=== PATIENT | female | born 1955 | race Caucasian/White ===

== ENCOUNTER 2020-12-06 05:20 | Day surgery (SDC) | payer OTHER, SELFPAY ==
[2020-11-22 13:41] VITALS: BMI 31.1
--- NOTE | 2020-11-30 12:22 | EKG12_ITS ---
Test Reason : PREOP Blood Pressure : / mmHG Vent. Rate : 060 BPM Atrial Rate : 060 BPM P-R Int : 144 ms QRS Dur : 086 ms QT Int : 406 ms P-R-T Axes : 011 017 011 degrees QTc Int : 406 ms Normal sinus rhythm Normal ECG Confirmed by ELIZABETH CARRANZA, SUSAN ([id number]), sound editor SERGIO MARION ([id number]) on 12/01/2020 11:23:38 AM Referred By: Lucia Horton Confirmed By:SUSAN JOHNSON MD
[2020-11-30 12:44] LABS: Hematocrit 39.3 % (37-47); Hemoglobin 12.8 g/dL (12.0-15.0); Mean Corp Hgb Conc 32.6 g/dL (32-36); Mean Corpuscular Hgb 29.7 pg (27.0-32.0); Mean Corpuscular Volume 91.2 fL (81-99); Mean Platelet Vol. 10.5 fl (6.2-12.0); Platelet Count 211 K/mm3 (150-450); RBC Distribution Width CV 12.8 % (11.6-14.6); RBC Distribution Width SD 43.2 fl (35.1-43.9); Red Blood Count 4.31 M/mm3 (4.2-5.4)
[2020-11-30 13:13] LABS: Anion Gap 4 (5-15); BUN 14 mg/dL (7-18); BUN/Creat Ratio 14.8 RATIO (10-20); Calcium,Total 8.8 mg/dL (8.5-10.1); Chloride 109 mmol/L (98-107); Creatinine, Serum 0.94 mg/dL (0.55-1.02); EST Glomerular Filtration Rate 63 mL/min (>60); Est Glom Filt Rate - Afr Amer 76 mL/min (>60); Glucose 75 mg/dL (74-106); Potassium 3.7 mmol/L (3.5-5.1); Sodium Level 142 mmol/L (136-145)
[2020-12-06] VITALS (13 sets, daily range): BP systolic 105–146; BP diastolic 66–82; PULSE 52–71; RESP 14–18; TEMP 36.1–36.9; O2SAT 95–100; BMI 31.4
--- NOTE | 2020-12-06 | HYST_PTH ---
PATIENT: JASMIN RAMOS LOC: [facility] [place] U#:[id number] AGE/SX: 65/F ROOM: RE12/06/[address]: Dr. Lucia Horton MD : [id number] BED: DIS: 12/07/2020 SPEC #: [id number] RECD: 12/06/20 12:01 STATUS: SINA GRIGSBY #: [id number] MARY: 12/06/20 00:[address]: Lucia Horton DEPT: SURGICAL PATHOLOGY RECD BY: Augie Gunderson ENTERED: 12/06/20 12:01 SP TYPE: HYSTERECT OTHR DR: DO Dr. Joi Selby MD Tissues: Uterus, NOS Procedures: Surgery Specimen Level V HEADER OPERATION: Vaginal hysterectomy, salpingo-oophorectomy PRE-OP DIAGNOSIS: Uterovaginal prolapse TISSUE SUBMITTED: Uterus, bilateral fallopian tubes and ovaries MICROSCOPIC DIAGNOSIS Uterus, bilateral fallopian tubes and ovaries, vaginal hysterectomy and salpingo-oophorectomy: Cervix - mild chronic cystic cervicitis with tunnel cluster formation. Endometrium - atrophic endometrium. Myometrium - focal adenomyosis. Bilateral fallopian tubes - no pathologic diagnosis. Bilateral ovaries - benign epithelial cysts (0.3 cm in greatest dimension). SJ:everett 12/07/2020 MICROSCOPIC DESCRIPTION Slides are reviewed. GROSS DESCRIPTION Received in fixative is one container labeled with the patient's name and designated uterus, bilateral fallopian tubes and bilateral ovaries. The specimen consists of a hysterectomy specimen consisting of uterus with cervix and detached bilateral fallopian tubes and ovaries. The uterus with cervix weighs 37 gm and measures 6 x 4 x 2.5 cm. The serosal surface is gifford, glistening. The ectocervical mucosa is unremarkable. The external os is oval in contour. The endocervical canal measures 2 cm in length and the endocervical mucosa is gifford, glistening and unremarkable. Sections of the cervix reveal a few cysts filled with mucoid material. The endometrial cavity is very narrow and appears to be partially obliterated and measures 2.5 cm in length and 0.3 cm in diameter. The endometrium is gifford, glistening without any mass lesion and measures <0.1 cm in thickness. Sections of the uterine wall do not reveal any mass lesion and measures up to 1.5 cm in thickness. One of the fallopian tubes measure 3.5 cm in length and 0.5 cm in diameter. The fimbrial end is identified. No tubo-ovarian adhesions are noted. The adjacent ovary measures 2.5 x 1 x 0.5 cm. A paraovarian cyst is noted measuring 0.5 cm in greatest dimension. It is filled with clear fluid. Sections of the ovary reveal unremarkable cut surfaces. The second fallopian tube is similar appearance to first one and measures 3.5 cm in length and 0.5 cm diameter. The adjacent second ovary measures 2.5 x 0.7 x 0.5 cm. Sections reveal unremarkable cut surfaces. Technical Applications Scientist sections are submitted in eight cassettes as follows: 1 - anterior cervix, 2 - posterior cervix, 3 & 4 - anterior uterine wall, 5 & 6 - posterior uterine wall, 7 - one fallopian tube and ovary, paraovarian cyst, 8??second fallopian tube and ovary. / ANGIE:everett 12/06/20 TC:5 CPT: 35148
[2020-12-06 06:11] LABS: Bedside Glucose 87 mg/dL (70-110)
[2020-12-06] MEDS: Acetaminophen 500 MG Tablet 1000 MG PO ×3 (06:20→17:35)
[2020-12-06] MEDS: Celecoxib 200 MG Capsule 400 MG PO (06:20)
[2020-12-06] MEDS: Enoxaparin 40 MG/0.4 ML Syringe SC (06:21)
[2020-12-06] MEDS: Gabapentin 600 MG Tablet PO (06:21)
[2020-12-06] MEDS: Scopolamine 1mg/72hr Patch 1 PATCH TD (06:21)
[2020-12-06] MEDS: dexAMETHasone 10 MG/ML Vial 8 MG IV (06:34)
[2020-12-06] MEDS: Lactated Ringers 1,000 ML 40 ML IV (06:35)
--- NOTE | 2020-12-06 07:27 | PCM.HPOB.BLA ---
- Problem List (1) Uterovaginal prolapse Status: Acute Comment: plan TVHBSO combo case with homa MARC History and Physical Date of Admission: 12/06/20 Intake Vital Signs 11/22/20 Height 5 ft 5 in 11/22/20 Weight: 187 lb 11/22/20 BMI 31.1 11/22/20 BP 158/98 H Intake Visit Reasons: HOMA REFERRAL Pensions Retirement Plan Specialist Required: No Accompanied by: self Is patient in pain?: No Allergies acetaminophen [From Vicodin] Adverse Reaction (Intermediate, Verified 11/22/20 13:33) PT UNSURE OF REACTION hydrocodone [From Vicodin] Adverse Reaction (Intermediate, Verified 11/22/20 13:33) PT UNSURE OF REACTION Medications bisoprolol 5 mg-hydrochlorothiazide 6.25 mg tablet 1 tab PO DAILY 11/22/20 [History] cinnamon bark 500 mg capsule 500 mg PO DAILY 11/22/20 [History Confirmed 11/22/20] coconut oil 1,000 mg capsule mg PO 11/22/20 [History] cod liver oil 5 ml PO DAILY 11/22/20 [History Confirmed 11/22/20] coenzyme Q10 100 mg capsule 200 mg PO DAILY cap 11/22/20 [History Confirmed 11/22/20] desoximetasone 0.25 % topical cream 1 applic TOPICAL BID 11/22/20 [History Confirmed 11/22/20] flaxseed oil 1,000 mg capsule 2,000 mg PO DAILY cap 11/22/20 [History Confirmed 11/22/20] ibuprofen 800 mg tablet 800 mg PO Q8H 11/22/20 [History Confirmed 11/22/20] krill oil 500 mg capsule mg PO 11/22/20 [History Confirmed 11/22/20] mecobalamin (vitamin B12) 1,000 mcg disintegrating tablet,sublingual 2,000 mcg SUBLINGUAL DAILY tab 11/22/20 [History Confirmed 11/22/20] multivitamin 1 tab PO DAILY 11/22/20 [History Confirmed 11/22/20] omega-3 fatty acids 1,000 mg capsule 1,000 mg PO DAILY 11/22/20 [History Confirmed 11/22/20] simvastatin 20 mg tablet 20 mg PO DAILY 11/22/20 [History Confirmed 11/22/20] Is last menstrual period known: No Post menopausal: Yes Patient : No : No PFSH Medical History (Updated 11/24/20 @ 10:[address] Joi Pringle MD) Hyperlipidemia (Acute) Lichen sclerosus (Acute) HTN (hypertension) (Chronic) Surgical History (Updated 11/22/20 @ 13:37 by Aimee Mccallum) H/O removal of cyst (Acute) uterine ablation (Acute) Family History (Updated 11/22/20 @ 13:48 by Aimee Mccallum) Sister Uterine cancer Father Alcoholism Social History (Updated 11/24/20 @ 10:[address] Joi Pringle MD) household members: spouse number of children: 4 current occupational status: employed current occupation: care home history of recent travel: No sexually active: No Smoking Status: Never smoker alcohol intake: never substance use type: does not use well-balanced diet: daily or most days what type of physical activity do you participate in: walking, other seatbelt use: always do you feel safe at home: Yes additional social history: - brenda FELECIA [employer]OURNE REFERRAL : Details: JASMIN RAMOS is a 65 year old who presents for vaginal bulge and pressure symptoms, has used pessary but is ready for surical interventions. she take azo for urinary complaints. she denies trouble emptying her bladder or bowels, and does have incontinence. Female Reproductive History Menopausal Symptoms: No night sweats Pregancy History 3 Elective abortions Hx Para 3 Spontaneous abortions Hx # Term Pregnancies Ectopic pregnancies Hx # Pregnancies Multiple births # of living children 3 ROS Const Constitutional: Denies fatigue, night sweats, weight gain or weight loss ENT ENT: Reports system reviewed and no additional complaints, except as docu Cardio Card: Denies chest pain Resp Resp: Denies cough or dyspnea GI GI: Reports as per HPI; denies constipation, nausea or vomiting : Reports as per HPI, prolapse symptoms, urinary incontinence and vaginal dryness; denies nipple discharge, vaginal discharge, vaginal odor or vaginal itching Musc Musc: Denies joint pain, back pain or muscle weakness Skin Skin/Breast: Denies hair loss, change in hair, dry skin, breast lump, breast pain, breast skin changes or nipple discharge Neuro Neuro: Reports system reviewed and no additional complaints, except as docu Psych Psych: Reports system reviewed and no additional complaints, except as docu Endo Endo: Denies cold intolerance, excessive sweating, heat intolerance or increased thirst Avi/Lymph Hematologic/Lymphatic: Denies easy bleeding, Denies easy bruising, Denies enlarged lymph nodes Exam Const General: cooperative, healthy appearing, comfortable, no acute distress, well developed Orientation: alert [facility] Head: normal to inspection, normocephalic Ears: hearing grossly normal bilaterally, external ears normal Nose: external nose normal, nares normal Face and sinus: normal facial exam Neck Neck: normal visual inspection, no lymphadenopathy Thyroid: thyroid normal Chest Chest palpation & inspection: normal inspection of the chest Resp Effort & Inspection: normal respiratory effort Auscultation: clear to auscultation bilaterally Cardio Rate: regular rate Rhythm: regular rhythm Heart Sounds: S1 normal, S2 normal GI Inspection: normal to inspection, non-distended Palpation: soft, no hepatosplenomegaly General: bladder normal to palpation External Female Exam: normal external appearance, normal appearance of the urethra Urethra: normal appearance of the urethra, normal palpation, no discharge Speculum Exam - Vagina: normal appearance of the vagina, normal vaginal discharge Speculum Exam - Cervix: normal appearance of the cervix, nontender Bimanual Exam- Vagina & Uterus: normal bimanual exam, uterine size normal, bladder normal to palpation, uterine shape normal, No cervical tenderness, uterine mobility normal, uterine consistency normal, normal cervical palpation, uterus non-tender Bimanual Exam- Adnexa, other: normal adnexae, adnexae mobile, no adnexal masses, rectocele (grade III), cystocele (grade III), vaginal apex descent Pelvic Support: cystocele (grade III) severe, rectocele (grade III) moderate, vaginal apex descent Musc Other: gross motor intact no deficits, full bilateral strength Skin General: no rashes or lesions noted Neuro General: alert, awake, moves all extremities, no focal motor deficits Motor: muscle tone normal throughout Extrem General: normal to inspection, no pedal edema Psych Appearance: grossly normal Mental Status: mental status grossly normal Affect: normal affect Speech and Movement: speech and movement normal Assessment & Plan Problems 1. Uterovaginal prolapse N81.4 plan TVHBSO combo case with saadsaranya prefers SDS Plan After discussing the patient's diagnosis and treatment plan options, patient wishes to proceed with surgical management. I have discussed with the patient the risks, benefits, and alternatives of the procedure which include but are not limited to risks of anesthesia, bleeding, infection, possible damage to bowel, bladder, or surrounding vasculature which could lead to additional surgery to evaluate any complications. Patient agrees to procedure and wishes to proceed. ACOG/uptodate references given for additional information regarding procedure. Coding Level of Care Code Off vis,new,level 4 Diagnoses Uterovaginal prolapse N81.4 UPDATE- I have seen the patient and performed any clinically relevant updates to the history and physical exam. Joi Pringle MD
--- NOTE | 2020-12-06 07:28 | PCM.OPRPT ---
Problem List (1) Uterovaginal prolapse Status: Acute Comment: plan TVHBSO combo case with homa MARC Report of Operation Date of Procedure: 12/06/20 Pre-Operative Diagnosis: uterovaginal prolapse Post-Operative Diagnosis: same Surgery/Procedure Performed:: tv h bso Description of Surgical Findings:: nl uterus tubes ovaries android ui developer: Elsy Tijerina Type of Anesthesia:: General Special Medications: none Specimen's removed: uterus tubes ovaries Drains: leger Fluids Replaced: crystalloid Description of Procedure: Patient was taken to the operating room and was placed under general anesthesia was prepped and draped in normal sterile fashion in the dorsal lithotomy position. Preoperative antibiotics and SCDs and Leger catheter was placed inside the bladder. Weighted speculum was placed in the vagina and the anterior and posterior lip of the cervix was grasped with 2 To clamps and circumferentially injected with dilute vasopressin. A circumferential incision was made with a scalpel and the posterior cul-de-sac was entered into sharply and a longneck speculum was placed. The anterior cul-de-sac was also dissected down and entered into sharply and the uterosacral ligaments were clamped cut and suture ligated bilaterally followed by the cardinal ligaments which were Clamped cut and suture ligated bilaterally with 0 Monocryl. The uterus serially descended and progressive bites were taken bilaterally up to the level of the utero-ovarian ligament bilaterally which was clamped transected and double ligated with 0 Monocryl suture and 0 Vicryl free tie. Bilateral fallopian tubes and ovaries were well visualized and noted be within normal limits and the bilateral fallopian tubes and ovaries were then clamped, transected across the base of the IP ligament with a Joss clamp and removed and double ligated with 0 monocryl suture and an 0 vicryl free tie. Excellent hemostasis was noted. Posterior peritoneum and the vagina were closed with [id number] 0 Vicryl pop offs including the posterior and anterior peritoneum in the reapproximation. Excellent hemostasis was noted. All instruments removed from the vagina clear urine was noted at the end of the procedure. see homa's note for details. Multi Select Codes - Urinary/Genital Urinary/Genital CPT Codes: 83666 TVH+BS/O <250gr uterus
[2020-12-06] MEDS: Cefazolin 2 GM in 0.9% Normal Saline 100 ML IV (07:30)
--- NOTE | 2020-12-06 07:51 | PCM.DC.VHY ---
Discharge Diet: No Restrictions Discharge Activity: Return to Normal Activity, May Not Drive, May Shower May resume sexual activity in: 6-8 weeks Call your doctor if your incision/area has: Continuous Slow Oozing, Sudden Increased Bleeding, Increased Pain/ Swelling, Increased Redness, Foul Smelling Discharge Call your doctor if you observe: Fever of 101 or Higher, Inability to urinate, Inability to have a bowel movement, Using more than one pad per hour Allergies/Adverse Reactions: Allergies hydrocodone [From Vicodin] Adverse Reaction (Intermediate, Verified 11/29/20 09:50) PT UNSURE OF REACTION makes pt whoozy Medications to take at Discharge bisoprolol 5 mg-hydrochlorothiazide 6.25 mg tablet 1 tab PO DAILY 11/22/20 cinnamon bark 500 mg capsule 500 mg PO DAILY 11/22/20 coconut oil 1,000 mg capsule 1,000 mg PO DAILY 11/22/20 cod liver oil 1 tab PO DAILY 11/22/20 coenzyme Q10 100 mg capsule 200 mg PO DAILY cap 11/22/20 desoximetasone 0.25 % topical cream 1 applic TOPICAL BID 11/22/20 flaxseed oil 1,000 mg capsule 2,000 mg PO DAILY cap 11/22/20 ibuprofen 800 mg tablet 800 mg PO Q8H PRN 11/22/20 krill oil 500 mg capsule 1 tab PO DAILY 11/22/20 mecobalamin (vitamin B12) 1,000 mcg disintegrating tablet,sublingual 1,000 mcg PO DAILY tab 11/22/20 multivitamin 1 tab PO DAILY 11/22/20 omega-3 fatty acids 1,000 mg capsule 1,000 mg PO DAILY 11/22/20 simvastatin 20 mg tablet 20 mg PO DAILY 11/22/20 Naproxen [Naprosyn] 250 - 500 mg PO Q8H PRN PRN #30 tab 12/06/20 Oxycodone HCl/Acetaminophen [Percocet 5-325] 1 - 2 tab PO Q6H PRN PRN 7 Days #15 tab 12/06/20 The following prescriptions were given: Naproxen [Naprosyn] 250 - 500 mg PO Q8H PRN PRN #30 tab PRN Reason: MILD PAIN Transmission Status: Sent to [facility] Oxycodone HCl/Acetaminophen [Percocet 5-325] 1 - 2 tab PO Q6H PRN PRN 7 Days #15 tab PRN Reason: Pain Transmission Status: Sent to [facility] Primary Care Physician: Kelton Elliott DO [Primary Care Provider] - Test Results: Test results from this visit will be discussed in further detail at your follow-up appointment, if applicable. Please Follow Up With: Joi Pringle MD - [phone]
[2020-12-06] MEDS: Lubricating Jelly 60 GM Tube 30 GM TOPICAL (08:00)
[2020-12-06] MEDS: Vasopressin 20 UNITS/ML Vial (09:46)
[2020-12-06] MEDS: Estrogens,Conj. 1 Tube 1 DOSE (09:46)
[2020-12-06] MEDS: Ondansetron 4 MG/2 ML Vial IV (09:49)
--- NOTE | 2020-12-06 10:06 | PCM.OPRPT ---
Problem List (1) Stress incontinence Status: Acute (2) Uterovaginal prolapse Status: Acute Comment: plan TVHBSO combo case with homa mae MARC Report of Operation Date of Procedure: 12/06/20 Pre-Operative Diagnosis: Uterovaginal prolapse, stress urinary incontinence Post-Operative Diagnosis: Same Surgery/Procedure Performed:: Anterior and posterior repair, sacrospinous ligament fixation, cystoscopy with bilateral ureteral catheterization, aborted mid urethral sling Type of Anesthesia:: General Specimen's removed: None Estimated Blood Loss (mL): 25cc Description of Procedure: The patient is a 65-year-old female with pelvic organ prolapse and incontinence who presents for surgical intervention after an appropriate evaluation in the office with cystoscopy and urodynamics. Informed consent was obtained including a discussion of the risks of COVID-19. Patient was taken to the operating room placed on the operating room table in supine position. Anesthesia monitored the head, neck, airway, IV access and vital signs throughout the case. Once anesthesia was appropriate ministered the patient was placed into dorsal lithotomy in Trendelenburg position. She was prepped and draped in usual sterile fashion. A Leger catheter was inserted and the bladder was drained. Dr. Pringle proceeded with hysterectomy etc. please see her operative report for full details. After closure of the vaginal cuff, I injected the posterior vaginal wall with vasopressin for hemostatic control and hydrostatic dissection. A midline incision was made and sharp and blunt dissection was performed until the rectovaginal fascia was identified bilaterally. This was brought together in 2 layer closure with 2-0 Vicryl in interrupted fashion. The repair extended down into the perineal body. The vaginal mucosa was then closed over the repair using running interlocking 2-0 Vicryl. Attention was then turned towards the anterior vaginal wall which was injected submucosally with vasopressin as well. Midline incision was then made. Sharp and blunt dissection was performed on either side. On the patient's left side dissection was performed until the pubocervical fascia was identified. On the right side the dissection extended down into the ischial spine and sacrospinous ligament. Using the Humera device, a Monodek suture was passed through the sacrospinous ligament and then through the apex of the vaginal mucosa just lateral to the vaginal cuff closure. The pubocervical fascia was brought together in a 2 layer closure using 2-0 interrupted Vicryl. The midline incision was closed using 2-0 running interlocking Vicryl. The Monodek was tied into position and the apex was supported. A cystourethroscopy was then performed through the urethra under direct visualization. There are no foreign bodies within the urinary bladder. Bilateral ureteral orifices were observed. The ureters were intubated with a whistle-tip catheter which was inserted without difficulty on each side up to 20 cm with clear yellow urine output from the whistle-tip catheter. At this time the cystoscope was removed and the Leger catheter was replaced. Attention was turned towards the mid urethra. It was injected submucosally with vasopressin. A midline incision was made. Upon beginning of dissection, the tissue did not appear normal and there is a question of a urethral diverticulum present. The extension of the diverticulum if present, extended beyond my comfort level of repair. The midline incision was closed in the mid urethral sling was aborted. The vagina was packed with Premarin cream and vaginal packing. The patient was awakened and taken the recovery room in good condition. There were no complications during this procedure. Grafts/Implants Used: None - Complications None - Admit VTE Documentation VTE Present on Admission: Yes VTE Mechan Device Prophylaxis: SCD's VTE Pharm Prophylaxis ordered?: Yes
--- NOTE | 2020-12-06 10:14 | PCM.DC.URO ---
Discharge Diet: No Restrictions Discharge Activity: Return to Normal Activity, May Not Drive, May Shower May resume sexual activity in: 6-8 weeks Additional Activity Instructions:: No lifting over 5 pounds, no strenuous activity, no sexual activity, patient is to continue vaginal estrogen cream. No swimming, no tub bathing, no hot tubs. Okay for stairs. Call your doctor if your incision/area has: Continuous Slow Oozing, Sudden Increased Bleeding, Increased Pain/ Swelling, Increased Redness, Foul Smelling Discharge Call your doctor if you observe: Fever of 101 or Higher, Inability to urinate, Inability to have a bowel movement, Using more than one pad per hour Allergies/Adverse Reactions: Allergies hydrocodone [From Vicodin] Adverse Reaction (Intermediate, Verified 11/29/20 09:50) PT UNSURE OF REACTION makes pt whoozy Medications to take at Discharge bisoprolol 5 mg-hydrochlorothiazide 6.25 mg tablet 1 tab PO DAILY 11/22/20 cinnamon bark 500 mg capsule 500 mg PO DAILY 11/22/20 coconut oil 1,000 mg capsule 1,000 mg PO DAILY 11/22/20 cod liver oil 1 tab PO DAILY 11/22/20 coenzyme Q10 100 mg capsule 200 mg PO DAILY cap 11/22/20 desoximetasone 0.25 % topical cream 1 applic TOPICAL BID 11/22/20 flaxseed oil 1,000 mg capsule 2,000 mg PO DAILY cap 11/22/20 ibuprofen 800 mg tablet 800 mg PO Q8H PRN 11/22/20 krill oil 500 mg capsule 1 tab PO DAILY 11/22/20 mecobalamin (vitamin B12) 1,000 mcg disintegrating tablet,sublingual 1,000 mcg PO DAILY tab 11/22/20 multivitamin 1 tab PO DAILY 11/22/20 omega-3 fatty acids 1,000 mg capsule 1,000 mg PO DAILY 11/22/20 simvastatin 20 mg tablet 20 mg PO DAILY 11/22/20 RX: Naproxen [Naprosyn] 250 - 500 mg PO Q8H PRN PRN #30 tab 12/06/20 RX: Oxycodone HCl/Acetaminophen [Percocet 5-325] 1 - 2 tab PO Q6H PRN PRN 7 Days #15 tab 12/06/20 The following prescriptions were given: RX: Naproxen [Naprosyn] 250 - 500 mg PO Q8H PRN PRN #30 tab PRN Reason: MILD PAIN Transmission Status: Received by [facility] RX: Oxycodone HCl/Acetaminophen [Percocet 5-325] 1 - 2 tab PO Q6H PRN PRN 7 Days #15 tab PRN Reason: Pain Transmission Status: Received by [facility] Primary Care Physician: Kelton Elliott DO [Primary Care Provider] - Test Results: Test results from this visit will be discussed in further detail at your follow-up appointment, if applicable. Please Follow Up With: Lucia Hotron MD When: call for appt Proposed Discharge Date: 12/07/20
[2020-12-06 10:15] LABS: Bedside Glucose 136 mg/dL (70-110)
[2020-12-06] MEDS: Lactated Ringers 1,000 ML 70 ML IV ×2 (10:29→12:48)
[2020-12-06] MEDS: Ketorolac 30 MG/ML Syringe IV ×2 (11:04→17:35)
[2020-12-06] MEDS: oxyCODONE 5 MG Tablet PO ×2 (12:04→17:35)
--- NOTE | 2020-12-06 12:29 | PCS.PANDOC ---
PANDEMIC DOCUMENTATION INITIATED: Date: 10/24/2020 Time:
[2020-12-06] MEDS: Docusate Sodium 100 MG Capsule PO ×2 (12:48→20:15)
[2020-12-06] MEDS: hydroCHLOROthiazide 6.25mg TAB 6.25 MG PO (12:48)
[2020-12-06] MEDS: Bisoprolol Fumarate 5 MG Tablet PO (13:56)
[2020-12-06] MEDS: 0.9% Saline Lock 10 ML Syringe IV (17:36)
[2020-12-06] MEDS: Atorvastatin Calcium 10 MG Tablet PO (20:15)
[2020-12-07] MEDS: Acetaminophen 500 MG Tablet 1000 MG PO ×3 (00:03→12:26)
[2020-12-07] MEDS: Ketorolac 30 MG/ML Syringe IV ×3 (00:03→12:26)
[2020-12-07 00:05] VITALS: BP 103/63; PULSE 60; RESP 16; TEMP 36.8; O2SAT 98
[2020-12-07] MEDS: Lactated Ringers 1,000 ML 70 ML IV (05:22)
[2020-12-07 05:30] VITALS: BP 114/75; PULSE 53; RESP 16; TEMP 36.8; O2SAT 98
[2020-12-07 06:37] LABS: Hematocrit 34.4 % (37-47); Hemoglobin 11.2 g/dL (12.0-15.0); Mean Corp Hgb Conc 32.6 g/dL (32-36); Mean Corpuscular Hgb 29.9 pg (27.0-32.0); Mean Corpuscular Volume 91.7 fL (81-99); Mean Platelet Vol. 10.6 fl (6.2-12.0); Platelet Count 179 K/mm3 (150-450); RBC Distribution Width CV 13.1 % (11.6-14.6); RBC Distribution Width SD 43.4 fl (35.1-43.9); Red Blood Count 3.75 M/mm3 (4.2-5.4); White Blood Count 8.3 K/mm3 (4.4-11.0)
[2020-12-07 07:15] VITALS: O2SAT 98
--- NOTE | 2020-12-07 08:06 | PCM.PN.BLA ---
Progress Note Patient is awake in bed, comfortable. Pain is controlled. No nausea. Did well overnight. Afebrile, vitals are good. Abdomen soft, non-tender. Urine in vines is clear. Vaginal packing and vines removed without difficulty. A/P POD#1 trial of void home later today plan for follow up in the office in 2 weeks pelvic MRI as outpatient. STROKE Vital Signs/Narrative: Vital Signs Temp Pulse Resp BP Pulse Ox 12/07/20 05:30 98.3 F 53 L 16 114/75 98
[2020-12-07 08:26] VITALS: BP 140/59; PULSE 52; RESP 18; TEMP 36.7; O2SAT 99
--- NOTE | 2020-12-07 08:45 | PCM.PN.OB ---
Patient Problems: Active and Suspected Problems (Last Updated 11/22/20 @ 13:36 by Aimee Mccallum) Stress incontinence (Acute) Uterovaginal prolapse (Acute) plan TVHBSO combo case with homa wall [facility] Subjective: Patient seen and examined. Reports doing well. Pain well controlled. Ambulating without difficulty. Has not yet voided since vines removal. Objective: Laboratory Tests 12/07/20 12/06/20 12/06/20 Range/Units 06:00 10:11 06:05 WBC 8.3 (4.4-11.0) K/mm3 RBC 3.75 L (4.2-5.4) M/mm3 Hgb 11.2 L (12.0-15.0) g/dL Hct 34.4 L (37-47) % MCV 91.7 (81-99) fL MCH 29.9 (27.0-32.0) pg MCHC 32.6 (32-36) g/dL RDW Std Deviation 43.4 (35.1-43.9) fl RDW Coeff of Gloria 13.1 (11.6-14.6) % Plt Count 179 (150-450) K/mm3 MPV 10.6 (6.2-12.0) fl Sodium (136-145) mmol/L Potassium (3.5-5.1) mmol/L Chloride (98-107) mmol/L Carbon Dioxide (21.0-32.0) mmol/L Anion Gap (5-15) BUN (7-18) mg/dL Creatinine (0.55-1.02) mg/dL Est GFR (MDRD) Af Amer (>60) mL/min Est GFR (MDRD) Non-Af (>60) mL/min BUN/Creatinine Ratio (10-20) RATIO Glucose (74-106) mg/dL Calcium (8.5-10.1) mg/dL Magnesium (1.6-2.6) mg/dL POC Glucose 136 H 87 (70-110) mg/dL Blood Type Antibody Screen 11/30/20 11/30/20 11/30/20 Range/Units 12:12 12:12 12:12 WBC 5.0 (4.4-11.0) K/mm3 RBC 4.31 (4.2-5.4) M/mm3 Hgb 12.8 (12.0-15.0) g/dL Hct 39.3 (37-47) % MCV 91.2 (81-99) fL MCH 29.7 (27.0-32.0) pg MCHC 32.6 (32-36) g/dL RDW Std Deviation 43.2 (35.1-43.9) fl RDW Coeff of Gloria 12.8 (11.6-14.6) % Plt Count 211 (150-450) K/mm3 MPV 10.5 (6.2-12.0) fl Sodium 142 (136-145) mmol/L Potassium 3.7 (3.5-5.1) mmol/L Chloride 109 H (98-107) mmol/L Carbon Dioxide 29.0 (21.0-32.0) mmol/L Anion Gap 4 L (5-15) BUN 14 (7-18) mg/dL Creatinine 0.94 (0.55-1.02) mg/dL Est GFR (MDRD) Af Amer 76 (>60) mL/min Est GFR (MDRD) Non-Af 63 (>60) mL/min BUN/Creatinine Ratio 14.8 (10-20) RATIO Glucose 75 (74-106) mg/dL Calcium 8.8 (8.5-10.1) mg/dL Magnesium (1.6-2.6) mg/dL POC Glucose (70-110) mg/dL Blood Type B POSITIVE Antibody Screen NEGATIVE 11/30/20 Range/Units 12:12 WBC (4.4-11.0) K/mm3 RBC (4.2-5.4) M/mm3 Hgb (12.0-15.0) g/dL Hct (37-47) % MCV (81-99) fL MCH (27.0-32.0) pg MCHC (32-36) g/dL RDW Std Deviation (35.1-43.9) fl RDW Coeff of Gloria (11.6-14.6) % Plt Count (150-450) K/mm3 MPV (6.2-12.0) fl Sodium (136-145) mmol/L Potassium (3.5-5.1) mmol/L Chloride (98-107) mmol/L Carbon Dioxide (21.0-32.0) mmol/L Anion Gap (5-15) BUN (7-18) mg/dL Creatinine (0.55-1.02) mg/dL Est GFR (MDRD) Af Amer (>60) mL/min Est GFR (MDRD) Non-Af (>60) mL/min BUN/Creatinine Ratio (10-20) RATIO Glucose (74-106) mg/dL Calcium (8.5-10.1) mg/dL Magnesium 2.0 (1.6-2.6) mg/dL POC Glucose (70-110) mg/dL Blood Type Antibody Screen - Physical Exam Vitals/I&O's: Vital Signs Temp Pulse Resp BP Pulse Ox 98.1 F 52 L 18 140/59 H 99 12/07/20 08:26 12/07/20 08:26 12/07/20 08:26 12/07/20 08:26 12/07/20 08:26 Oxygen Flow Rate (L/min) 6 Oxygen Delivery Method Room Air Weight: 189 lb 2.506 oz Body Mass Index (BMI) 31.4 Intake and Output for Last 24 Hours 12/05/20 12/06/20 12/07/20 23:59 23:59 23:59 Intake Total 1377.17 / 1377.17 1000 / 1000 Output Total 875 / 875 1675 / 1675 Balance 502.17 / 502.17 -675 / -675 General: Alert, Oriented x3, Cooperative, No apparent distress, Well developed, Well nourished HEENT: Atraumatic, PERRLA, EOMI, Normocephalic Oral: Moist Mucosa Neck: Supple, No JVD Lungs: Clear to auscultation, Normal air movement Cardiovascular: Regular rate, Regular Rhythm Abdomen: Soft, Non Tender, Non-Distended Extremities: No edema, No Calf Tenderness Neurological: Cranial nerves II-XII grossly intact, Neuro grossly intact Psych/Mental Status: Normal Affect, Appropriate Microbiology Past 72 Hours 12/05/20 13:55 Interface Orders SARS-CoV-2 Antigen (Rapid) - Final Laboratory Results 12/06/20 10:11: POC Glucose 136 H 12/07/20 06:00: WBC 8.3, RBC 3.75 L, Hgb 11.2 L, Hct 34.4 L, MCV 91.7, MCH 29.9, MCHC 32.6, RDW Std Deviation 43.4, RDW Coeff of Gloria 13.1, Plt Count 179, MPV 10.6 Current Medications Acetaminophen (Acetaminophen 500 Mg Tablet) 1,000 mg PO Q6 [facility] Last Admin: 12/07/20 06:22 Dose: 1,000 mg Documented by: Atorvastatin Calcium (Atorvastatin Calcium 10 Mg Tablet) 10 mg PO QHS [facility] Last Admin: 12/06/20 20:15 Dose: 10 mg Documented by: Bisoprolol Fumarate (Bisoprolol Fumarate 5 Mg Tablet) 5 mg PO DAILY [facility] Last Admin: 12/06/20 13:56 Dose: 5 mg Documented by: Docusate Sodium (Docusate Sodium 100 Mg Capsule) 100 mg PO BID [facility] Last Admin: 12/06/20 20:15 Dose: 100 mg Documented by: Enoxaparin Sodium (Enoxaparin 40 Mg/0.4 Ml Syringe) 40 mg SC DAILY [facility] Hydrochlorothiazide (Hydrochlorothiazide 6.25mg Tab) 6.25 mg PO DAILY [facility] Last Admin: 12/06/20 12:48 Dose: 6.25 mg Documented by: Lactated Ringer's () 1,000 mls @ 70 mls/hr IV .[id number] [facility] Stop: 12/07/20 10:19 Last Admin: 12/07/20 05:22 Dose: 70 mls/hr Documented by: Sodium Chloride () 250 mls @ 15 mls/hr IV .[id number] PRN PRN Reason: Saline Flush Sodium Chloride () 250 mls @ 15 mls/hr IV .[id number] PRN PRN Reason: Additional IVPB Infusion Ketorolac Tromethamine (Ketorolac 30 Mg/Ml Syringe) 30 mg IV Q6 [facility] Stop: 12/07/20 18:01 Last Admin: 12/07/20 05:23 Dose: 30 mg Documented by: Magnesium Chloride (Magnesium Chloride 64 Mg Delay Rel.Tablet) 128 mg PO DAILY PRN PRN PRN Reason: Constipation Ondansetron HCl (Ondansetron Odt 4 Mg Tablet) 4 mg PO Q6H PRN PRN PRN Reason: NAUSEA Oxycodone HCl (Oxycodone 5 Mg Tablet) 5 - 10 mg PO Q4H PRN PRN PRN Reason: Pain Score 4-10 Last Admin: 01/19/21 17:35 Dose: 5 mg Documented by: Sodium Chloride (0.9% Saline Lock 10 Ml Syringe) 10 - 40 ml IV UD PRN PRN Reason: SALINE FLUSH Last Admin: 12/06/20 17:36 Dose: 10 ml Documented by: Medical Necessity - Tobacco Use Smoking Status: Never smoker Tobacco Use: Non-smoker Assessment/Plan All Active Problems (Last Updated 11/22/20 @ 13:36 by Aimee Mccallum) Stress incontinence (Acute) Uterovaginal prolapse (Acute) 65yo F POD#1 s/p TVH and pelvic floor reconstruction - Patient doing well - Post-op Hb stable - Pain controlled - Tolerating PO without nausea or vomiting - Vitals stable - Has not voided yet since catheter removal - Anticipate DC to home later this am
[2020-12-07] MEDS: Enoxaparin 40 MG/0.4 ML Syringe SC (09:51)
[2020-12-07] MEDS: hydroCHLOROthiazide 6.25mg TAB 6.25 MG PO (09:51)
[2020-12-07] MEDS: Docusate Sodium 100 MG Capsule PO (09:51)
[2020-12-07] MEDS: Bisoprolol Fumarate 5 MG Tablet PO (09:52)
--- NOTE | 2020-12-07 10:55 | NURSING ---
called office with pvr amt.
[2020-12-07 11:43] VITALS: BP 144/81; PULSE 50; RESP 18; TEMP 36.8; O2SAT 100
[2020-12-07] MEDS: 0.9% Saline Lock 10 ML Syringe IV (12:26)
== END 2020-12-07 13:33 | disposition home or self-care (01) ==
LOC: SDC 05:21 → AC 05:22 → MS3 12-07 07:59
PROVIDERS: Anesthesiology; Obstetrics & Gynecology; PCP Family Medicine; Referring Provider Urology; Visit Provider Urology
PROC: (CPT 58260; principal; 2020-12-06 07:10)
PROC: (CPT 57260; 2020-12-06 07:10)
DX: N81.4 Uterovaginal prolapse, unspecified (principal); N39.3 Stress incontinence (female) (male); Z79.1 Long term (current) use of non-steroidal anti-inflammatories (NSAID); Z88.5 Allergy status to narcotic agent; Z79.899 Other long term (current) drug therapy; N72 Inflammatory disease of cervix uteri; L72.0 Epidermal cyst
CPT/HCPCS: 00902; 57250; 57282; 57288; 58262; 36415; 80048; 82962; 83735; 85027; 86850; 86900; 86901; 87426; 88307; 93005; 94762; 99251; C9803; J7120; A4216; C1758; G0463; J2405

== ENCOUNTER → 2021-03-03 06:23 | Outpatient (CLI) | payer OTHER, SELFPAY ==
[2020-12-27 08:42] VITALS: BMI 31.2
[2021-02-22 09:27] VITALS: BMI 34.1
[2021-03-03 06:55] LABS: CREATININE FINGERSTICK 0.9 mg/dL (0.55-1.02); EGFR FINGERSTICK > 60.0000 mL/min (>60)
--- NOTE | 2021-03-03 07:00 | MRI_ITS ---
STUDY: MR PELVIS WITH T WITHOUT CONTRAST REASON FOR EXAM: Female, 65 years old. Urethral diverticulum TECHNIQUE: Standardized fat and water weighted pulse sequences were obtained in all 3 orthogonal planes, pre-and post contrast administration. 18ml Dotarem via IV was administered for the contrast portion of the examination. COMPARISON: None. FINDINGS: Normal urinary bladder. Normal visualized small intestine. Normal visualized colon. There is no pelvic fluid. There is no pelvic mass lesion or lymphadenopathy. Normal visualized pelvic arteries. Normal osseous structures. Normal abdominal wall. MRI/Pelvis W/WO Contrast IMPRESSION: Normal unenhanced and enhanced MRI of the pelvis. No MR evidence of urethral diverticulum. Electronically Signed: Chad Merlos MD at 11:40 EDT Tel , Service support ,
== END ==
PROVIDERS: PCP Family Medicine; Referring Provider Urology; Visit Provider Urology
DX: N36.1 Urethral diverticulum (principal)
CPT/HCPCS: 72197; A9575

== ENCOUNTER → 2021-03-17 13:29 | Outpatient (CLI) | payer OTHER, SELFPAY ==
--- NOTE | 2021-03-17 13:40 | CT_ITS ---
STUDY: CT RIGHT LOWER EXTREMITY WITHOUT CONTRAST REASON FOR EXAM: Right knee osteoarthritis, surgical planning for total knee arthroplasty. TECHNIQUE: Transaxial CT imaging of the lower extremity was performed. Coronal and sagittal images were reformatted. Individualized dose optimization techniques were used for this CT. COMPARISON: Radiographs 02/22/2021. FINDINGS: Knee: There are marginal osteophytes, subchondral sclerosis and severe joint space loss of the medial femorotibial compartment (coronal reconstruction 32). There are very small marginal osteophytes of the lateral femoral condyle without joint space narrowing of the lateral femorotibial compartment. There are small marginal osteophytes of the patellofemoral compartment with preservation of joint space. Normal proximal tibiofibular articulation. There is no joint effusion. The quadriceps tendon is grossly normal. The patellar tendon is grossly normal. Normal Hoffa''s fat pad. There is a small enthesophyte at the superior pole of the patella. Hip: Normal right hip articulation. Ankle: Normal tibiotalar, posterior subtalar, talonavicular and visualized calcaneocuboid articulations. There are small posterior and plantar calcaneal enthesophytes. CT/Extremity Lower without Contra IMPRESSION: Osteoarthritis of the medial femorotibial compartment. Electronically Signed: Stas Jones MD at 14:47 EDT Tel , Service support ,
== END ==
PROVIDERS: PCP Family Medicine; Referring Provider Orthopaedic Surgery; Visit Provider Orthopaedic Surgery
DX: M17.0 Bilateral primary osteoarthritis of knee (principal)
CPT/HCPCS: 73700

== ENCOUNTER 2021-03-28 06:07 | Day surgery (SDC) | payer OTHER, SELFPAY ==
[2021-02-22 09:27] VITALS: BMI 34.1
--- NOTE | 2021-03-17 13:30 | EKG12_ITS ---
Test Reason : PREOP Blood Pressure : / mmHG Vent. Rate : 067 BPM Atrial Rate : 067 BPM P-R Int : 146 ms QRS Dur : 080 ms QT Int : 390 ms P-R-T Axes : 034 -01 012 degrees QTc Int : 412 ms Normal sinus rhythm Normal ECG Confirmed by REKHA CARRANZA, JERMAINE ([id number]), purchase request editor RIA BUSBY ([id number]) on 03/20/2021 12:30:30 PM Referred By: DEQUAN Confirmed By:JERMAINE DA SILVA MD
[2021-03-17 14:54] LABS: Absolute Neutrophil Count 2.7 X10^3/uL (2.0-7.7); Basophil# 0.04 X10^3/uL; Basophil% 0.8 % (0-1); Eosinophil# 0.43 X10^3/uL; Eosinophils% 8.7 % (0-5); Hematocrit 37.3 % (37-47); Hemoglobin 11.8 g/dL (12.0-15.0); Lymphocyte % 28.2 % (19-41); Mean Corp Hgb Conc 31.6 g/dL (32-36); Mean Corpuscular Hgb 28.6 pg (27.0-32.0); Mean Corpuscular Volume 90.5 fL (81-99); Mean Platelet Vol. 10.7 fl (6.2-12.0); Monocyte# 0.41 X10^3/uL; Monocyte% 8.3 % (0-10); NRBC Flagged by Analyzer 0 % (0-5); Neutrophil # 2.67 X10^3/uL (2.7-7.7); Neutrophil % 53.8 % (47-70); Platelet Count 212 K/mm3 (150-450); RBC Distribution Width CV 13.2 % (11.6-14.6); RBC Distribution Width SD 43.6 fl (35.1-43.9); Red Blood Count 4.12 M/mm3 (4.2-5.4)
[2021-03-17 15:04] LABS: International Normalized Ratio 1.1; Prothrombin Time (Protime)PT. 13.5 SECONDS (11.7-14.9)
[2021-03-17 15:05] LABS: Partial Thromboplast Time 24.7 Seconds (24.1-36.2)
[2021-03-17 15:55] LABS: Anion Gap 6 (5-15); BUN 21 mg/dL (7-18); BUN/Creat Ratio 21.3 RATIO (10-20); Calcium,Total 8.5 mg/dL (8.5-10.1); Chloride 108 mmol/L (98-107); Creatinine, Serum 0.99 mg/dL (0.55-1.02); EST Glomerular Filtration Rate 60 mL/min (>60); Est Glom Filt Rate - Afr Amer 72 mL/min (>60); Glucose 111 mg/dL (74-106); Potassium 3.6 mmol/L (3.5-5.1); Sodium Level 140 mmol/L (136-145)
[2021-03-17 16:01] LABS: Magnesium 2.1 mg/dL (1.6-2.6)
[2021-03-19 10:42] LABS: Fructosamine 227 umol/L (0-285)
[2021-03-28] VITALS (15 sets, daily range): BP systolic 106–146; BP diastolic 67–90; PULSE 53–75; RESP 16–18; TEMP 35.3–36.6; O2SAT 93–100; BMI 33.1
[2021-03-28] MEDS: Gabapentin 600 MG Tablet PO (07:00)
[2021-03-28] MEDS: Lactated Ringers 1,000 ML 100 ML IV ×2 (07:00→09:30)
[2021-03-28] MEDS: Celecoxib 200 MG Capsule 400 MG PO (07:00)
[2021-03-28] MEDS: Acetaminophen 500 MG Tablet 1000 MG PO ×2 (07:00→13:46)
[2021-03-28] MEDS: Scopolamine 1mg/72hr Patch 1 PATCH TD (07:00)
--- NOTE | 2021-03-28 07:13 | HP.PCM_ITS ---
History and Physical Date of Admission: 03/28/21 MR#:[id number]:[id number]: JASMIN RAMOS [facility] #:[id number]:1955 Provider:Dr. Zurdo Barksdale DOAge/Sex: 65/F Location:[place]:Signed Intake Intake Visit Reasons: Bilat knees Chief Complaint: 3 week post op Allergies hydrocodone [From Vicodin] Adverse Reaction (Intermediate, Verified 02/22/21 09:36) Hallucinations PFSH Medical History (Updated 02/22/21 @ 10:22 by Sybil Seymour) Hyperlipidemia (Acute) Lichen sclerosus (Acute) HTN (hypertension) (Chronic) Surgical History H/O colonoscopy (Acute) H/O removal of cyst (Acute) H/O tubal ligation (Acute) History of endometrial ablation (Acute) History of total vaginal hysterectomy (TVH) (Acute) S/P BSO (bilateral salpingo-oophorectomy) (Acute) Family History (Updated 02/22/21 @ 09:35 by Sybil Seymour) Sister Uterine cancer Father Alcoholism Other Arthritis Hypertension Social History (Updated 03/03/21 @ 10:[address] Zurdo Barksdale DO) household members: spouse number of children: 4 current occupational status: employed current occupation: [employer] history of recent travel: No sexually active: No Smoking Status: Never smoker alcohol intake: never substance use type: does not use well-balanced diet: daily or most days what type of physical activity do you participate in: walking, other seatbelt use: always do you feel safe at home: Yes additional social history: - brenda IZQUIERDO Bilat knees: Details: Parts of this documentation were recorded by a scribe, this documentation accurately reflects the service provided and the decisions made by me, Dr. Zurdo Barksdale DO 03/03/21 [id number]. JASMIN RAMOS is a 65 year old F here today for F/U on BL knee pain. She was in here last week and discussed her treatment options. She is now here today to further discuss her treatment options. She states that she is leaning more towards having a TKA because she doesn't just want to prolong the inevitable, and the knees are affecting her activities of daily living she can no longer walk in the evening has significant pain after prolonged standing. Denies any PT or injections. She has tried bracing which was not effective. She states the right knee is worse than the left knee. She does feel that the left knee is more unstable some days. During examination: patient voiced she would like to feel better at the end of the day with her bilateral knees. Patient voiced if she does not take ibuprofen or use her Voltaren gel, she suffers. Patient has not tried injections previously. ROS Const Denies system reviewed and no additional complaints, except as docu, Denies chills, Denies fatigue, Denies fever(s), Denies frequent falls, Denies headache(s) ENT Denies headache(s) Card Denies system reviewed and no additional complaints, except as docu, Denies chest pain, Denies shortness of breath Resp Denies system reviewed and no additional complaints, except as docu, Denies chest congestion, Denies cough, Denies shortness of breath GI Denies system reviewed and no additional complaints, except as docu, Denies abdominal pain, Denies constipation, Denies incontinent of stools, Denies loose stools, Denies nausea, Denies vomiting Denies system reviewed and no additional complaints, except as docu, Denies urinary incontinence Musc Reports system reviewed and no additional complaints, except as docu, Reports as per HPI, Reports abnormal walking, Reports joint pain, Reports joint swelling, Denies numbness, Denies radiating pain into limb, Denies stiffness, Denies tingling Skin/Breast Denies system reviewed and no additional complaints, except as docu, Denies changing lesions, Denies dry skin, Denies redness, Denies boil, Denies lesions, Denies new lesions, Denies non-healing lesions, Denies itching, Denies rash, Denies skin ulcer, Denies sores, Denies unusual bruising, Denies wounds Neuro Yes abnormal walking, No frequent falls, No headache(s), No numbness, No tingling Endo Denies fatigue Ortho Exam General General: Yes no acute distress Neurologic: Yes alert Psychologic: Yes reasonable and appropriate Right Knee Skin/Wound: No erythema, No ecchymosis, No swelling Knee ROM: No ROM-Extension -20 to 0 (-10), No ROM-Flexion 0-140 (115) Examination: No Med jt line tenderness, No Lat jt line tenderness, No Virginia's Test Stability: NML: Anterior Drawer, NML: Posterior Drawer, NML: Valgus 0, NML: Varus 0, NML: Varus 30, 1+: Valgus 30 (due to medial joint space narrowing) Patella Translation: 1 Patella Grind: No KNEE: negative PES tenderness No gross motor deficits knee and ankle 1/4 pedal pulses Left Knee Patella Translation: 1 KNEE: Left Knee Skin/Wound: No ecchymosis, No erythema, No swelling Knee ROM: Yes ROM-Extension -20 to 0, Yes ROM-Flexion 0-140 Stability: NML: Anterior Drawer, NML: Posterior Drawer, NML: Valgus 0, NML: Varus 0, NML: Varus 30, 1+: Valgus 30 (due to medial joint space narrowing) Patella Translation: 1 KNEE: no joint effusion varus deformity Supplemental Info 02/22/2021 x-ray bilateral knees advanced knee arthrosis [id number] medial compartment with varus deformity Assessment & Plan Problems 1. Primary osteoarthritis of both knees M17.0 Plan Explained and educated patient her knees present bad on x-ray. Explained patient on steroid injections, administer them at least every three months. Surgery cannot be done until three months after an injection. This is a progressive disease, however discussed ricks of surgery. Patient would like to proceed with surgery. Reviewed the pre-operative plans with the patient. Risks, benefits and alternatives of surgery reviewed including but not limited to bleeding, infection, nerve, artery and/or tissue damage, fracture, VTE, mechanical feel of the knee, continued pain, stiffness and expected post-operative course.The patient understands all the risks and does wish to proceed with written consent. Explained to patient, to perform one knee surgery at a time. We can do both, however, risks are doubled. Surgery on the other knee can be done three months after. Patient would like to proceed with her right knee first. Discussed and educated patient on the IOVERA treatment. Also provided a pamphlet regarding IOVERA. Patient would like to proceed. Discussed recovery period, will feel better by two months, will continue to feel relief up to two years. Patient will need physical therapy post-op, will start the same week. All questions answered. Patient in agreement of plan. plan for right knee tka 03/28/2021 Coding Level of Care Code Off vis,est,level 3 Diagnoses Primary osteoarthritis of both knees M17.0 I have re-examined the patient. There are no clinical changes since date of exam
[2021-03-28] MEDS: Cefazolin 2 GM in 0.9% Normal Saline 100 ML IV (08:27)
[2021-03-28] MEDS: dexAMETHasone 10 MG/ML Vial IV (08:30)
[2021-03-28] MEDS: 0.9% Normal Saline (Pres. free 10 ML Vial (09:44)
[2021-03-28] MEDS: Bupivacaine 0.5% PF 10 ML VIAL (09:44)
[2021-03-28] MEDS: Betamethasone/Betamethasone 30 MG/5 ML Vial (09:44)
[2021-03-28] MEDS: Epinephrine (1 mg/ml) 1 MG/ML VIAL (09:44)
[2021-03-28 09:51] LABS: Bedside Glucose 104 mg/dL (70-110)
--- NOTE | 2021-03-28 10:16 | RAD_ITS ---
STUDY: X-RAY - RIGHT KNEE REASON FOR EXAM: Postop right total knee arthroplasty. TECHNIQUE: 2 view(s) of the knee. COMPARISON: Radiographs 02/22/2021. FINDINGS: There is a right total knee arthroplasty without evidence of complication. There is postoperative gas in the soft tissues and overlying skin niurka. RAD/Knee 1 or 2 Views IMPRESSION: Uncomplicated right total knee arthroplasty. Electronically Signed: Stas Jones MD at 12:21 EDT Tel , Service support ,
--- NOTE | 2021-03-28 10:18 | OP.PCM_ITS ---
Report of Operation Surgery/Procedure Performed:: Preoperative diagnosis: [Right] knee DJD Postoperative diagnosis: [Same] Procedure: [Right] total knee arthroplasty CT guided Robotic Assisted Implant: [employer] triathlon [press fit] femoral component size[ 3], [press-fit ]tibial baseplate size [4], [press fit ][asymmetric] patella size [32], polyethylene X3 size [9] [CS] Anesthesia: [spinal] with adductor canal block Tourniquet time: [26] [minutes at 300 mmHg] Complications: None Condition: Stable to PACU Estimated blood loss: [150] cc Indication for procedure: This is a [65-year-old female] with long standing degenerative joint disease of the knee who has failed conservative treatment and wished to proceed with elective total knee arthroplasty. Risk benefits and alternatives were reviewed including; risk of bleeding, infection, nerve artery and tissue damage, continued pain, postoperative stiffness, venous th romboembolism, need for postoperative rehabilitation, mechanical feel to the knee, and expected postoperative course. The operative CT and templating was performed with component sizing Procedure: The patient was met in the preoperative holding area. The operative extremity was identified by both patient and physician and was marked. Patient was met by anesthesia. An adductor canal block was placed by anesthesia [postoperatively] the patient was brought back to the operating room on a wheeled cart and transferred to the operating table in the supine position. Anesthesia was started. A well-padded tourniquet was placed on the operative extremity. The patient was prepped and draped in the usual sterile fashion. A timeout was called to ensure the proper patient procedure and extremity were being contemplated. An Esmarch was used to exsanguinate the extremity. The tourniquet was inflated. A 10 blade scalpel was used to make a midline incision down through the skin and subcutaneous tissue. Skin retractors placed. Bovie was used to perform meticulous hemostasis. full-thickness flaps were elevated medial and lateral along the joint capsule. A deep blade scalpel was used to perform a medial parapatellar arthrotomy. The knee was brought to full extension. A Bovie was used to release the soft tissues off the most proximal aspect of the medial tibial plateau, a three-quarter inch curved osteotome was also used for this process. The infrapatellar fat pad was excised. [The superior fat pad was excised partially anteriorolateraly and portion the anterioromedial pad was elevated from the femur]. At this point our intra- articular femoral array was placed of a 45 degree angle proximal and posterior to the medial epicondyle. Our tibial array was placed greater than 1 hands breath below the incision at a 20 degree angle stab incisions were used for this case were attached and checked with the robotic software. Tourniquet was let down. At this point registration roberts were taken throughout the knee as well as checkpoints placed in the femur and tibia once the knee was registered then tensioned the medial and lateral ligaments in extension and 90 degrees of flexion. We then used these numbers to adjust our components within parameters to balance the knee in both flexion and extension once this was done on our monitor we then proceeded with using the robotic arm to make our tibial plateau cut and anterior posterior and chamfer cuts and distal on the femur we then trialed and achieved the desired plan with a well-balanced knee. Lug holes were drilled in the femur the tibia preparation was completed with a fin punch and the patella was prepared by first using a caliper to ensure sufficient bone stock and a patellar reamer to remove the desired amount of bone locals were drilled for an asymmetric poly-. We then brought the knee through range of motion with excellent patellar tracking. We thoroughly irrigated the knee with a trial components were removed a posterior capsular injection with her standard cocktail was performed the aqua Mantis was also used to aid in hemostasis. Betadine rinse was allowed to sit and washed out components were [press-fit into place]. Aricept rinse was then used followed by several more rate liters of irrigation after it was allowed to sit. Joint capsule was closed with #1 Ethibond [id number] followed by Vicryl in the subcutaneous tissues staple in the skin arrays and checkpoints were removed prior to closure all counts were correct stab incisions were closed with a stable standard dressing in the form of Mepilex for the main incision Xeroform 4 x 4 and Tegaderm over pin site holes. Thigh-high BESSY hose applied over top of dressing. Patient tolerated the procedure well and was directed to PACU in stable condition no intraoperative complications
--- NOTE | 2021-03-28 10:23 | PCM.DC ---
Discharge Instructions Diet Discharge Diet: No restrictions Dressing / Incision Call your doctor if you observe: Shortness of breath and Chest pain Additional Dressing/Incision Instructions:: Ice and elevate one week while not ambulating. Ambulation is encouraged. Weightbearing as tolerated. Use assistive devise for stability. Encourage FULL knee extension and flexion 1 time EVERY time you get up and down and MULTIPLE times per day. No showering 72 hours after surgery. Begin showering postop day #3. Remove the dressing prior to shower and gently wash with warm water and antibacterial soap then pat dry and place abdominal pad (or plain gauze) and BESSY hose over top. This is to be done daily. Do not submerge for 3 weeks. If not showering daily after the initial 72 hours then you must clean incision and change dressing daily. Do not allow animals near the incision area. Keep clean. Follow anticoagulation recommendations as prescribed. Do not take any NSAIDs while on blood thinner. Do not take any additional narcotic pain medication other than what was prescribed on you surgery day without discussing with physician. Start physical therapy. If you are not currently scheduled for physical therapy or you are unsure of appointment time please call office [facility] to arrange. Call Dr. Barksdale with any concerns. Follow Up Care Please Follow Up With: Zurdo Barksdale DO When: 2 weeks Test Results: Test results from this visit will be discussed in further detail at your follow-up appointment, if applicable. Discharge Plan Admission Attending Provider: Zurdo Barksdale Primary Care Provider: Kelton Elliott Discharge Orders/Prescriptions Prescriptions: New acetaminophen [acetaminophen] 500 MG tablet 1,000 mg PO Q6H PRN Qty: 100 RF: 0 cephalexin [cephalexin] 500 MG capsule 1,000 mg PO Q8 Qty: 4 RF: 0 Eliquis 2.5 MG tablet 2.5 mg PO BID Qty: 30 RF: 0 oxycodone 5 mg capsule 5 - 10 mg PO Q4H PRN (Reason: pain) 7 Days Qty: 60 RF: 0 Continued bisoprolol 5 mg-hydrochlorothiazide 6.25 mg tablet 5-6.25 mg tablet 1 tab PO DAILY RF: 0 simvastatin 20 mg tablet 20 mg PO DAILY RF: 0 desoximetasone 0.25 % cream 1 applic TOPICAL BID RF: 0 cod liver oil Oil 1 tab PO DAILY RF: 0 mecobalamin (vitamin B12) 1,000 mcg tablet,disintegrating 1,000 mcg PO DAILY RF: 0 omega-3 fatty acids [Fish Oil Concentrate] 1,000 mg capsule 1,000 mg PO DAILY RF: 0 coenzyme Q10 [Co Q-10] 100 mg capsule 200 mg PO DAILY RF: 0 flaxseed oil 1,000 mg capsule 2,000 mg PO DAILY RF: 0 cinnamon bark [Cinnamon] 500 mg capsule 500 mg PO DAILY RF: 0 coconut oil 1,000 mg capsule 1,000 mg capsule 1,000 mg PO DAILY RF: 0 multivitamin Tablet 1 tab PO DAILY RF: 0 krill oil 500 mg capsule 1 tab PO DAILY RF: 0 apple cider vinegar 600 mg capsule 450 mg PO DAILY RF: 0 Discontinued ibuprofen [IBU] 800 mg tablet 800 mg PO Q8H PRN (Reason: Pain 1-10 Or Fever) RF: 0 Referrals / Follow Up: Kelton Elliott DO [Primary Care Provider] - Disposition Discharge Orders: Discharge Patient (Routine); Ordered 03/28/21 Ordered By: Dr. Zurdo Barksdale
[2021-03-28] MEDS: Cefazolin 1 GM/50 ML BAG IV (11:03)
== END 2021-03-28 16:13 | disposition home or self-care (01) ==
LOC: SDC 06:08 → AC 06:09
PROVIDERS: Anesthesiology; PCP Family Medicine; Referring Provider Orthopaedic Surgery; Visit Provider Orthopaedic Surgery
PROC: 0SRC0JZ Replacement of Right Knee Joint with Synthetic Substitute, Open Approach (ICD-10-PCS; CPT 27447; principal; 2021-03-28 08:00)
DX: M17.11 Unilateral primary osteoarthritis, right knee (principal); I10 Essential (primary) hypertension; J45.909 Unspecified asthma, uncomplicated; Z79.899 Other long term (current) drug therapy
CPT/HCPCS: 27447; 36415; 73560; 80048; 82962; 82985; 83735; 85025; 85610; 85730; 86850; 86900; 86901; 87081; 87426; 93005; 97162; C1776; C9803; J7120; J0702; J2405; J3490